=== PATIENT | female | born 1960 | race Caucasian/White ===

== ENCOUNTER 2019-01-24 15:28 | Outpatient (CLI) | payer BC ==
--- NOTE | 2019-01-28 16:40 | MMO ---
Bilateral MAMMO Bilat Screen [facility]. CLINICAL HISTORY: Patient is 58 years old and is seen for screening. The patient has no family history of breast cancer. The patient has no personal history of cancer. The patient has a history of left needle biopsy in 1989 - benign. VIEWS: The views performed were: bilateral craniocaudal and bilateral mediolateral oblique. FILMS COMPARED: The present examination has been compared to prior imaging studies performed at [facility] on 04/03/2015, 04/29/2016 and 05/26/2017. This study has been interpreted with the assistance of computer-aided detection. MAMMOGRAM FINDINGS: The breasts are heterogeneously dense, which could obscure a lesion on mammography. There are stable benign appearing calcifications seen in both breasts. There are no suspicious masses, suspicious calcifications, or new areas of architectural distortion. IMPRESSION: THERE IS NO MAMMOGRAPHIC EVIDENCE OF MALIGNANCY. A ROUTINE FOLLOW-UP MAMMOGRAM IN 1 YEAR IS RECOMMENDED. ACR BI-RADS Category 2 - Benign finding MAMMOGRAPHY NOTE: 1. A negative mammogram report should not delay a biopsy if a dominant of clinically suspicious mass is present. 2. Approximately 10% to 15% of breast cancers are not detected by mammography. 3. Adenosis and dense breasts may obscure an underlying neoplasm.
== END 2019-01-24 15:29 | disposition home or self-care (01) ==
LOC: MERGE 15:28 → SCSMAMMO 15:28
PROVIDERS: ATTEND Family Medicine
DX: Z12.31 Encounter for screening mammogram for malignant neoplasm of breast (principal)
CPT/HCPCS: 77067

== ENCOUNTER 2020-12-24 15:43 | Outpatient (CLI) | payer BC | END 2020-12-24 15:44 | disposition home or self-care (01) | LOC: SCSRAD 15:43 | PROVIDERS: ATTEND Internal Medicine Rheumatology | DX: M79.642 Pain in left hand (principal); M65.9 Synovitis and tenosynovitis, unspecified; M85.842 Other specified disorders of bone density and structure, left hand ==